=== PATIENT | female | born 1935 | race Caucasian/White ===

== ENCOUNTER 2016-05-20 16:19 | Emergency (ER) | payer MEDICARE, OTHER ==
[2016-05-20] MEDS ORDERED: ALBUTEROL/IPRATROPIUM 1 VIAL SOL INH ONE (16:45)
[2016-05-20 16:50] VITALS: TEMP 97.4
[2016-05-20] MEDS ORDERED: DILTIAZEM ER 120 MG C24 ONE (17:13)
[2016-05-20] MEDS ORDERED: DILTIAZEM ER 120 MG C24 PO SCH (17:15)
[2016-05-20] MEDS ORDERED: ALBUTEROL/IPRATROPIUM 1 VIAL SOL ONE (17:21)
[2016-05-20 18:43] VITALS: BP 129/54; PULSE 129; RESP 24; O2SAT 99
== END 2016-05-20 17:55 | disposition home or self-care (01) | DRG 153 ==
LOC: ED 16:19
DX: J06.9 Acute upper respiratory infection, unspecified (principal)
CPT/HCPCS: 71020; 99283; J7620

== ENCOUNTER 2016-07-07 00:05 | Emergency (ER) | payer MEDICARE, OTHER ==
[2016-07-07 00:14] VITALS: RESP 16; TEMP 97.7
[2016-07-07 01:06] LABS: BASOPHILS % (AUTO) 1 % (0-3); EOSINOPHILS % (AUTO) 3 % (0-9); HEMATOCRIT 29 % (35-47); MEAN CORPUSCULAR HGB CONC 31.2 gm/dl (32.0-36.0); MONOCYTES % (AUTO) 10.5 % (0-12); NEUTROPHILS % (AUTO) 56.4 % (37-80)
[2016-07-07 01:13] LABS: CALCIUM 8.3 mg/dl (8.5-10.1); POTASSIUM 4.2 mMol/L (3.5-5.1)
[2016-07-07 01:15] LABS: MEAN CORPUSCULAR VOLUME 72 fL (81-99)
[2016-07-07 01:24] LABS: ANISOCYTOSIS MOD AMT; HYPOCHROMASIA MOD AMT; OVALOCYTES PRESENT
[2016-07-07] MEDS ORDERED: ACETAMINOPHEN 325 MG PO ONE (02:10)
[2016-07-07] MEDS ORDERED: ACETAMINOPHEN 500 MG 500 MG TAB ONE (02:26)
[2016-07-07 02:54] VITALS: BP 179/52; PULSE 71; O2SAT 98
== END 2016-07-07 02:49 | disposition home or self-care (01) | DRG 552 ==
LOC: ED 00:05
DX: M54.5 Low back pain (principal); Z79.01 Long term (current) use of anticoagulants; W06.XXXA Fall from bed, initial encounter
CPT/HCPCS: 36415; 72131; 80048; 85025; 85610; 99282; 99284

== ENCOUNTER 2016-08-08 12:55 | Emergency (ER) | payer MEDICARE, OTHER ==
[2016-08-08] MEDS ORDERED: NITROGLYCERIN 0.4 MG TAB SL PRN (13:37)
[2016-08-08 13:57] LABS: BASOPHILS % (AUTO) 1 % (0-3); EOSINOPHILS % (AUTO) 2 % (0-9); HEMATOCRIT 35 % (35-47); MEAN CORPUSCULAR HGB CONC 31.9 gm/dl (32.0-36.0); MONOCYTES % (AUTO) 8.3 % (0-12); NEUTROPHILS % (AUTO) 72.7 % (37-80)
[2016-08-08 14:00] LABS: CALCIUM 8.3 mg/dl (8.5-10.1); MEAN CORPUSCULAR VOLUME 78 fL (81-99); POTASSIUM 4.1 mMol/L (3.5-5.1)
[2016-08-08 14:12] LABS: ANISOCYTOSIS SLIGHT AMT
[2016-08-08] MEDS: LIDOCAINE HCL 2% (VISCOUS) 20 ML SOL MT ONE (14:16)
[2016-08-08] MEDS ORDERED: ALUMINUM/MAGNESIUM 30 ML SUS ONE (14:21)
[2016-08-08] MEDS ORDERED: LIDOCAINE HCL 2% (VISCOUS) 20 ML SOL ONE (14:21)
[2016-08-08] MEDS: ALUMINUM/MAGNESIUM 30 ML SUS PO PRN (14:24)
[2016-08-08 14:53] VITALS: BP 136/62; PULSE 88; RESP 30; O2SAT 95
[2016-08-08 15:19] VITALS: TEMP 98.1
[2016-08-09] MEDS ORDERED: ASPIRIN 325 MG TAB PO SCH (09:00)
== END 2016-08-08 15:33 | disposition home or self-care (01) | DRG 313 ==
LOC: ED 12:55
DX: R07.89 Other chest pain (principal); R10.13 Epigastric pain
CPT/HCPCS: 36415; 71010; 80048; 84484; 85025; 93005; 99284; 99285

== ENCOUNTER 2017-08-20 12:16 | Emergency (ER) | payer OTHER ==
[2017-08-20 12:28] VITALS: RESP 20
[2017-08-20] MEDS ORDERED: SODIUM CHLORIDE 0.9% 500 ML 500 ML IV ONE (13:08)
[2017-08-20 13:10] LABS: BASOPHILS % (AUTO) 1 % (0-3); EOSINOPHILS % (AUTO) 3 % (0-9); HEMATOCRIT 39 % (35-47); LYMPHOCYTES % (AUTO) 20.2 % (10-50); MEAN CORPUSCULAR HEMOGLOBIN 30.1 pg (27.0-32.0); MEAN CORPUSCULAR HGB CONC 33.9 gm/dl (32.0-36.0); MEAN CORPUSCULAR VOLUME 89 fL (81-99); MONOCYTES % (AUTO) 12.7 % (0-12); NEUTROPHILS % (AUTO) 63.5 % (37-80)
[2017-08-20 13:18] LABS: INR 1.63 (0.86-1.12)
[2017-08-20] MEDS ORDERED: SODIUM CHLORIDE 0.9% FLUSH 10 ML SOL IV PRN (13:23)
[2017-08-20 13:24] LABS: BILIRUBIN,TOTAL 0.6 mg/dl (0.2-1.0); CALCIUM 8.7 mg/dl (8.5-10.1); CARBON DIOXIDE 33.2 mEq/L (21-32); CREATININE 1.02 mg/dl (0.60-1.00); POTASSIUM 4.1 mMol/L (3.5-5.1); TOTAL PROTEIN 6.8 gm/dl (6.4-8.2)
[2017-08-20 13:42] LABS: APPEARANCE,URINE Clear; BILIRUBIN,URINE NEGATIVE (NEGATIVE); COLOR,URINE Yellow; GLUCOSE, URINE (UA) NEGATIVE (NEGATIVE); KETONES,URINE NEGATIVE (NEGATIVE); LEUKOCYTE ESTERASE ,URINE TRACE (NEGATIVE); NITRATE,URINE NEGATIVE (NEGATIVE); OCCULT BLOOD,URINE NEGATIVE (NEG-TRACE); UROBILINOGEN,URINE 0.2 (0.2-1.0 EU)
[2017-08-20 13:47] LABS: BACTERIA 1+ (< 1+); CRYSTALS NEGATIVE (0-3 AVE/HPF); RBC,URINE 0-2 (0-3AV/HPF)
[2017-08-20 16:12] VITALS: TEMP 97.8
[2017-08-20 16:47] VITALS: BP 130/78; PULSE 70; O2SAT 92
== END 2017-08-20 16:44 | disposition home or self-care (01) ==
LOC: ED 12:16
DX: E86.0 Dehydration (principal); R41.0 Disorientation, unspecified; R40.2362 Coma scale, best motor response, obeys commands, at arrival to emergency department; R40.2142 Coma scale, eyes open, spontaneous, at arrival to emergency department; R40.2252 Coma scale, best verbal response, oriented, at arrival to emergency department
CPT/HCPCS: 70450; 71045; 80053; 81001; 85025; 85610; 87077; 87088; 87186; 93005; 96365; 99284; 99285

== ENCOUNTER 2017-08-29 14:52 | Observation (INO) | payer OTHER ==
[2017-08-29] MEDS ORDERED: ASPIRIN 81 MG CHEWABLE CTB PO STA (15:04)
[2017-08-29] MEDS ORDERED: SODIUM CHLORIDE 0.9% FLUSH 10 ML SOL IV PRN (15:04)
[2017-08-29] MEDS ORDERED: NITROGLYCERIN 0.4 MG TAB SL PRN ×2 (15:04→19:46)
[2017-08-29 15:24] LABS: BASOPHILS % (AUTO) 2 % (0-3); EOSINOPHILS % (AUTO) 1 % (0-9); HEMATOCRIT 37 % (35-47); HEMOGLOBIN 12.4 gm/dl (12.0-15.5); LYMPHOCYTES % (AUTO) 12.7 % (10-50); MEAN CORPUSCULAR HEMOGLOBIN 29.5 pg (27.0-32.0); MEAN CORPUSCULAR HGB CONC 33.5 gm/dl (32.0-36.0); MEAN CORPUSCULAR VOLUME 88 fL (81-99); MONOCYTES % (AUTO) 10.9 % (0-12); NEUTROPHILS % (AUTO) 73.3 % (37-80)
[2017-08-29 15:39] LABS: INR 1.8 (0.86-1.12)
[2017-08-29 15:44] LABS: BLOOD UREA NITROGEN 21 mg/dl (7-18); CALCIUM 8.9 mg/dl (8.5-10.1); CARBON DIOXIDE 31.8 mEq/L (21-32); CHLORIDE 102 mMol/L (98-107); CREATINE KINASE 234 U/L (26-192); CREATININE 1.42 mg/dl (0.60-1.00); GLOM FILT RATE 35 mL/min (>60); GLUCOSE 94 mg/dl (74-106); POTASSIUM 4.1 mMol/L (3.5-5.1); SODIUM 141 mMol/L (136-145); TROP I < 0.017 ng/ml (0.000-0.056)
[2017-08-29] MEDS ORDERED: FENTANYL 100MCG/2ML SOL IV ONE (17:38)
[2017-08-29] MEDS ORDERED: ONDANSETRON HCL 4 MG/2 ML SOL IV ONE (17:38)
[2017-08-29] MEDS ORDERED: ONDANSETRON HCL 4 MG/2 ML SOL ONE (17:40)
[2017-08-29] MEDS ORDERED: FENTANYL 100MCG/2ML SOL ONE (17:40)
[2017-08-29] MEDS ORDERED: SODIUM CHLORIDE 0.9% 1000ML 500 ML IV ONE (17:51)
[2017-08-29] MEDS ORDERED: ACETAMINOPHEN 500 MG 500 MG TAB ONE (18:05)
[2017-08-29] MEDS ORDERED: ACETAMINOPHEN 500 MG 500 MG TAB PO ONE (18:05)
[2017-08-29 18:18] LABS: APPEARANCE,URINE Clear; BILIRUBIN,URINE NEGATIVE (NEGATIVE); COLOR,URINE Yellow; GLUCOSE, URINE (UA) NEGATIVE (NEGATIVE); KETONES,URINE NEGATIVE (NEGATIVE); LEUKOCYTE ESTERASE ,URINE 1+ (NEGATIVE); NITRATE,URINE NEGATIVE (NEGATIVE); OCCULT BLOOD,URINE NEGATIVE (NEG-TRACE); UROBILINOGEN,URINE 0.2 (0.2-1.0 EU)
[2017-08-29 18:33] LABS: RBC,URINE 0-2 (0-3AV/HPF)
[2017-08-29 18:34] LABS: BACTERIA 1+ (< 1+); CRYSTALS NEGATIVE (0-3 AVE/HPF)
[2017-08-29] MEDS ORDERED: LIDOCAINE 5% PATCH 1 PATCH TDM TOP ONE (19:18)
[2017-08-29] MEDS ORDERED: LEVOFLOXACIN 25 MG/ML 500 MG in SODIUM CHLORIDE 0.9% 100 ML 100 ML IV SCH (19:45)
[2017-08-29] MEDS ORDERED: ALUMINUM/MAGNESIUM 30 ML SUS PO PRN ×2 (19:46→23:33)
[2017-08-29] MEDS ORDERED: LEVOFLOXACIN 25 MG/ML SOL IV ONE (19:46)
[2017-08-29] MEDS ORDERED: TDAP VACCINE 0.5 ML SUS IM ONE (19:46)
[2017-08-29] MEDS ORDERED: ACETAMINOPHEN 325 MG PO PRN (19:46)
[2017-08-29] MEDS ORDERED: SODIUM CHLORIDE 0.9% 1000 ML SOL IV ONE (19:55)
[2017-08-29] MEDS: TDAP VACCINE 0.5 ML SUS IM ONE ×2 (20:05→21:02)
[2017-08-29] MEDS: TEMAZEPAM 15MG 15 MG CAP PO PRN (22:32)
[2017-08-29] MEDS ORDERED: ALBUTEROL HFA 60 PUFF/INHALER INH PRN (23:33)
[2017-08-29] MEDS ORDERED: POLYETHYLENE GLYCOL 17 GM/1 TBS PDS PO PRN (23:33)
[2017-08-29] MEDS ORDERED: DOCUSATE SODIUM 100 MG SGL PO PRN (23:33)
[2017-08-29] MEDS ORDERED: SENNOSIDES PO PRN (23:33)
[2017-08-29] MEDS ORDERED: DOCUSATE SODIUM PO PRN (23:33)
[2017-08-30] MEDS: LEVOTHYROXINE SODIUM 50 MCG TAB PO SCH (06:15)
[2017-08-30] MEDS: SODIUM CHLORIDE 0.9% FLUSH 10 ML SOL IV SCH ×4 (06:16→22:37)
[2017-08-30 07:25] LABS: ALT 21 IU/L (14-63); AST 27 IU/L (15-37); BILIRUBIN,TOTAL 0.6 mg/dl (0.2-1.0); BLOOD UREA NITROGEN 16 mg/dl (7-18); CALCIUM 8.4 mg/dl (8.5-10.1); CARBON DIOXIDE 29.6 mEq/L (21-32); CHLORIDE 104 mMol/L (98-107); CREATININE 1.02 mg/dl (0.60-1.00); GLOM FILT RATE 52 mL/min (>60); GLUCOSE 101 mg/dl (74-106); POTASSIUM 3.7 mMol/L (3.5-5.1); SODIUM 143 mMol/L (136-145); TOTAL PROTEIN 6.1 gm/dl (6.4-8.2)
[2017-08-30 07:26] LABS: ALBUMIN 2.7 gm/dl (3.4-5.0); ALKALINE PHOSPHATASE 95 IU/L (46-116); CHOLESTEROL 128 mg/dl (120-200); HDL CHOLESTEROL 43 mg/dl (40-60); LDL/HDL RATIO 1.5 (1.1-3.1); TROP I < 0.017 ng/ml (0.000-0.056)
[2017-08-30] MEDS ORDERED: PREGABALIN 100 MG PO SCH (09:00)
[2017-08-30] MEDS ORDERED: FERROUS SULFATE 325 MG PO SCH (09:00)
[2017-08-30] MEDS ORDERED: CALCIUM CARBONATE 600 MG PO SCH (09:00)
[2017-08-30] MEDS ORDERED: FLUTICASONE PROPIONATE NAS SCH (09:00)
[2017-08-30] MEDS: POTASSIUM CHLORIDE 10 MEQ TER PO SCH ×2 (09:18→20:12)
[2017-08-30] MEDS: ACETAMINOPHEN 500 MG 500 MG TAB PO SCH ×2 (09:18→20:14)
[2017-08-30] MEDS: SERTRALINE HYDROCHLORIDE 50 MG TAB PO SCH (09:19)
[2017-08-30] MEDS: METOPROLOL TARTRATE 50 MG TAB PO SCH ×2 (09:19→20:13)
[2017-08-30] MEDS: MULTIVITAMIN2 1 EA TAB PO SCH (09:20)
[2017-08-30] MEDS: FERROUS GLUCONATE 324 MG TABLET PO SCH ×2 (09:20→20:12)
[2017-08-30] MEDS: CALCIUM CARBONATE 500 MG TAB PO SCH (09:20)
[2017-08-30] MEDS: PANTOPRAZOLE SODIUM 40 MG ECT PO SCH (09:21)
[2017-08-30] MEDS: FUROSEMIDE 40 MG TAB PO SCH (09:21)
[2017-08-30] MEDS: APAP/HYDROCODONE 325/5 TAB PO PRN ×3 (09:24→20:17)
[2017-08-30 09:46] LABS: INR 1.84 (0.86-1.12)
[2017-08-30] MEDS: PREGABALIN 100 MG CAP PO SCH ×2 (11:27→20:15)
[2017-08-30] MEDS: CYCLOSPORINE EACHEYE SCH ×2 (16:54→20:08)
[2017-08-30] MEDS: FLUTICASONE PROPIONATE SPR NAS SCH ×2 (16:54→20:09)
[2017-08-30] MEDS ORDERED: WARFARIN SODIUM 3 MG TAB PO SCH (18:00)
[2017-08-30] MEDS ORDERED: LEVOFLOXACIN 500 MG TAB PO SCH (20:00)
[2017-08-30] MEDS ORDERED: SENNOSIDES A AND B 8.6 MG TAB PO PRN (21:00)
[2017-08-30] MEDS ORDERED: AMITRIPTYLINE 25 MG TAB PO SCH (21:00)
[2017-08-30] MEDS: TEMAZEPAM 15MG 15 MG CAP PO PRN (23:32)
[2017-08-31] MEDS: SODIUM CHLORIDE 0.9% FLUSH 10 ML SOL IV SCH ×2 (06:09→13:28)
[2017-08-31] MEDS: LEVOTHYROXINE SODIUM 50 MCG TAB PO SCH (06:09)
[2017-08-31] MEDS: APAP/HYDROCODONE 325/5 TAB PO PRN (06:12)
[2017-08-31 07:19] LABS: BASOPHILS % (AUTO) 2 % (0-3); EOSINOPHILS % (AUTO) 5 % (0-9); HEMATOCRIT 35 % (35-47); HEMOGLOBIN 12.3 gm/dl (12.0-15.5); LYMPHOCYTES % (AUTO) 21.9 % (10-50); MEAN CORPUSCULAR HEMOGLOBIN 30.8 pg (27.0-32.0); MEAN CORPUSCULAR HGB CONC 34.9 gm/dl (32.0-36.0); MEAN CORPUSCULAR VOLUME 88 fL (81-99); MONOCYTES % (AUTO) 10.3 % (0-12); NEUTROPHILS % (AUTO) 60.1 % (37-80)
[2017-08-31 07:24] LABS: CALCIUM 8.9 mg/dl (8.5-10.1); CREATININE 0.89 mg/dl (0.60-1.00); INR 1.82 (0.86-1.12); POTASSIUM 3.8 mMol/L (3.5-5.1)
[2017-08-31 07:30] VITALS: PULSE 72; RESP 18
[2017-08-31 07:32] LABS: CARBON DIOXIDE 34.6 mEq/L (21-32)
[2017-08-31] MEDS ORDERED: IBUPROFEN 400 MG TAB PO PRN (08:22)
[2017-08-31] MEDS: CYCLOSPORINE EACHEYE SCH (08:52)
[2017-08-31] MEDS: FLUTICASONE PROPIONATE SPR NAS SCH (08:52)
[2017-08-31] MEDS: POTASSIUM CHLORIDE 10 MEQ TER PO SCH (08:52)
[2017-08-31] MEDS: FERROUS GLUCONATE 324 MG TABLET PO SCH (08:52)
[2017-08-31] MEDS: METOPROLOL TARTRATE 50 MG TAB PO SCH (08:53)
[2017-08-31] MEDS: FUROSEMIDE 40 MG TAB PO SCH (08:53)
[2017-08-31] MEDS: CALCIUM CARBONATE 500 MG TAB PO SCH (08:55)
[2017-08-31] MEDS: PANTOPRAZOLE SODIUM 40 MG ECT PO SCH (08:55)
[2017-08-31] MEDS: MULTIVITAMIN2 1 EA TAB PO SCH (08:55)
[2017-08-31] MEDS: ACETAMINOPHEN 500 MG 500 MG TAB PO SCH (08:55)
[2017-08-31] MEDS: PREGABALIN 100 MG CAP PO SCH (08:55)
[2017-08-31] MEDS: SERTRALINE HYDROCHLORIDE 50 MG TAB PO SCH (08:56)
[2017-08-31 16:09] VITALS: BP 88/60; TEMP 97.8; O2SAT 93
== END 2017-08-31 16:40 | DRG 641 ==
LOC: ED 14:52 → UNDOADMOB 19:37 → ACUTE CARE 19:37
PROVIDERS: ADMIT Internal Medicine; ATTEND Internal Medicine
PROC: F01K5ZZ Range of Motion and Joint Integrity Assessment of Musculoskeletal System - Upper Back / Upper Extremity (ICD-10-PCS; principal; 2017-08-30)
PROC: F02Z3FZ Grooming/Personal Hygiene Assessment using Assistive, Adaptive, Supportive or Protective Equipment (ICD-10-PCS; 2017-08-30)
PROC: F02Z0FZ Bathing/Showering Assessment using Assistive, Adaptive, Supportive or Protective Equipment (ICD-10-PCS; 2017-08-30)
DX: E86.0 Dehydration (principal); I48.91 Unspecified atrial fibrillation; F03.90 Unspecified dementia, unspecified severity, without behavioral disturbance, psychotic disturbance, mood disturbance, and anxiety; N39.0 Urinary tract infection, site not specified; R07.1 Chest pain on breathing; I10 Essential (primary) hypertension; Z79.01 Long term (current) use of anticoagulants; W19.XXXA Unspecified fall, initial encounter
CPT/HCPCS: 36415; 70450; 71045; 71250; 80048; 80053; 80061; 81001; 82550; 83880; 84484; 85025; 85610; 85730; 87088; 90471; 90715; 93005; 93012; 94760; 96365; 96374; 96375; 99219; 99285; J1956; J2405; J3010; A9270; A9270-GY